=== PATIENT | male | born 1980 | race Caucasian/White ===

== ENCOUNTER 2016-11-10 13:43 | Emergency (ER) | payer OTHER ==
[~2016-11-10] VITALS: Ht 172.7 cm; Wt 104.3 kg
[2016-11-10 16:43] VITALS: BP 134/79
== END 2016-11-10 16:15 | disposition home or self-care (01) ==
LOC: ED 13:43
DX: M77.9 Enthesopathy, unspecified (principal); E78.5 Hyperlipidemia, unspecified
CPT/HCPCS: J3010; Q0092; Q0162